=== PATIENT | male | born 1975 | race Caucasian/White ===

== ENCOUNTER → 2017-04-01 | Outpatient (CLI) | payer OTHER ==
[2017-04-01 14:14] LABS: BASO % 0.3 % (0.0-1.0); EOS # 0.1 10^3/uL (0.0-0.50); EOS % 1.6 % (0.0-3.0); IMMATURE GRANULOCYTE % 0.2 % (0-0); LYMPH # 2.1 10^3/uL (1.5-4.5); LYMPH % 34.6 % (24.0-44.0); MEAN CORPUSCULAR HEMOGLOBIN 32.1 pg (27.0-33.0); MEAN CORPUSCULAR HGB CONC 34.6 g/dl (32.0-36.5); MEAN CORPUSCULAR VOLUME 92.9 fl (80.0-96.0); MONO # 0.7 10^3/uL (0.0-0.8); MONO % 11.3 % (0.0-5.0); NEUTROPHILS # 3.2 10^3/uL (1.8-7.7); PLATELET COUNT, AUTOMATED 216 10^3/uL (150-450); RED CELL DISTRIBUTION WIDTH 12.5 % (11.5-14.5); WHITE BLOOD COUNT 6.1 10^3/uL (4.0-10.0)
== END ==
LOC: M LABNEURO 08:21
PROVIDERS: ATTEND Physician Assistant Medical
DX: Z51.81 Encounter for therapeutic drug level monitoring (principal); R56.9 Unspecified convulsions

== ENCOUNTER → 2019-09-09 | Outpatient (CLI) | payer OTHER ==
--- NOTE | 2019-09-10 00:06 | ECWPNPC ---
PATIENT NAME: SOFIA GUO : 1975 GENDER: MALE VISIT DATE: 09/09/2019 DISCHARGE DATE: 09/09/19 1216 VISIT LOCKED DATE TIME: PHYSICIAN: SHRUTHI OPST RESOURCE: SHRUTHI POST REASON FOR APPOINTMENT 1. BACK/NECK HISTORY OF PRESENT ILLNESS PAIN SCREENIN-YEAR-OLD GENTLEMAN REFERRED BY [facility] FOR PERSISTENT LOW BACK PAIN. LONG HISTORY OF LOW BACK PAIN. OVER THE PAST YEAR PAIN HAS GOTTEN WORSE. DENIES PRECIPITATING EVENT. 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 CHIEF AREA OF PAIN IS LEFT LUMBAR PARASPINAL REGION. RATING PAIN LEVEL A 4-10 OVER 10 VAS. DESCRIBES PAIN CONSTANT AND BURNING IN LEFT LOW BACK. REVIEWED MRI OF THE LS-SPINE, WHICH IS NOT SHOWING ANY SPECIFIC PATHOLOGY. PAIN IS AGGRAVATED IN THE LEFT LOW BACK WITH LIFTING AND PROLONGED SITTING. DENIES CHANGES IN BOWEL OR BLADDER FUNCTION. NO RECENT TREATMENT FOR LOW BACK PAIN. PATIENT HAS A COMPLAINT OF ACUTE OR CHRONIC PAIN :YES FALL RISK SCREENING: SCREENING :NO FALLS REPORTED IN THE LAST YEAR CURRENT MEDICATIONS TAKING DIVALPROEX SODIUM 500 MG TABLET DELAYED RELEASE 2 TABLETS ORALLY TWICE A DAY TAKING LOSARTAN POTASSIUM 50 MG TABLET 1 TABLET ORALLY ONCE A DAY TAKING PANTOPRAZOLE SODIUM 40 MG TABLET DELAYED RELEASE 1 TABLET ORALLY ONCE A DAY TAKING TYLENOL 325 MG TABLET 1 TABLET NEEDED ORALLY EVERY 4 HRS TAKING MOTRIN IB 200 MG CAPSULE 1 CAPSULE WITH FOOD OR MILK NEEDED ORALLY THREE TIMES A DAY MEDICATION LIST REVIEWED AND RECONCILED WITH THE PATIENT PAST MEDICAL HISTORY SEIZURE DISORDER CERVICALGIA RADICULOPATHY LOW BACK PAIN HYPERTENSION GASTRIC REFLUX HODGKIN'S LYMPHOMA AT AGE 20'LAZARO ALLERGIES PENICILLIN (FOR ALLERGIES USE ONLY) SURGICAL HISTORY BONE MARROW TRANSPLANT AT AGE 20 1998 LYMPH NODE REMOVED FROM NECK, ARMPIT 1998 CYST REMOVED FROM BACK 2014 FAMILY HISTORY FATHER: , DIAGNOSED WITH UNSPECIFIED HEART DISEASE MOTHER: ALIVE, HYPERTENSION 2 BROTHER(S) , 2 SISTER(S) - HEALTHY. SOCIAL HISTORY GENERAL: TOBACCO USE ARE YOU A:CURRENT SMOKER ARE YOU INTERESTED IN QUITTING?THINKING ABOUT QUITTING PREVIOUS QUIT ATTEMPTS?YES, WITHIN THE LAST 6 MONTHS. COUNSELED THE PATIENT ON SMOKING CESSATION, EDUCATION [id number]/13/2020 HOW MANY CIGARETTES A DAY DO YOU SMOKE?11-20 HOW SOON AFTER YOU WAKE UP DO YOU SMOKE YOUR FIRST CIGARETTE?WITHIN 5 MIN HOW OFTEN DO YOU SMOKE CIGARETTES?EVERY DAY PATIENT COUNSELED ON THE DANGERS OF TOBACCO USE AND URGED TO QUIT:09/09/2019 LATEX QUESTIONNAIRE LATEX ALLERGY : HAVE YOU EVER DEVELOPED ANY TYPE OF REACTION AFTER HANDLING LATEX PRODUCTS SUCH RUBBER GLOVES, CONDOMS, DIAPHRAGMS, BALLOONS, SOCKS, OR UNDERWEAR?NO LATEX ALLERGY : HAVE YOU EVER DEVELOPED ANY TYPE OF REACTION DURING OR AFTER DENTAL APPOINTMENT, VAGINAL/RECTAL EXAMINATION, SURGICAL PROCEDURE, OR ANY OTHER EXPOSURE?NO LATEX RISK : HAVE YOU EVER HAD ANY DIFFICULTY BREATHING OR HIVES AFTER EATING OR HANDLING ANY FRUITS, OR VEGETABLES; SUCH KIWI, BANANAS, STONE FRUITS, OR CHESTNUTSNO LATEX RISK : DO YOU HAVE A PREVIOUS PERSONAL HISTORY OF MORE THAN NINE SURGERIES, SPINA BIFIDA, OR REPEATED CATHERIZATIONS? NO LATEX RISK : ARE YOU FREQUENTLY EXPOSED TO LATEX PRODUCTS IN YOUR OCCUPATION?NO DATE ASKED : 09/09/2019 ALCOHOL SCREENING DID YOU HAVE A DRINK CONTAINING ALCOHOL IN THE PAST YEAR?YES HOW OFTEN DID YOU HAVE A DRINK CONTAINING ALCOHOL IN THE PAST YEAR?TWO TO THREE TIMES PER WEEK (3 POINTS) HOW MANY DRINKS DID YOU HAVE ON A TYPICAL DAY WHEN YOU WERE DRINKING IN THE PAST YEAR?1 OR 2 (0 POINTS) HOW OFTEN DID YOU HAVE SIX OR MORE DRINKS ON ONE OCCASION IN THE PAST YEAR?LESS THAN MONTHLY (1 POINT) POINTS4 INTERPRETATIONPOSITIVE RECREATIONAL DRUG USE DRUG USE?NO CAFFEINE CAFFEINE USE?YES ONE SIX PACK OF [place] DEW/DAY LANGUAGE LANGUAGES SPOKEN:YI LEARNING BARRIERS / SPECIAL NEEDS BARRIERS TO LEARNING?NO HEARING IMPAIRED?YES PT REPORTS SOME HEARING LOSS BILATERAL RIGHT> LEFT, NO HEARING AIDES VISION IMPAIRED?YES :CORRECTIVE LENSES COGNITIVELY IMPAIRED?NO READINESS TO LEARN?YES LEARNING PREFERENCES?NO LEARNING CAPABILITIES PRESENT?YES EMOTIONAL BARRIERS?NO SPECIAL DEVICES?NO NECK BAND OPERATOR NEEDED?NO OCCUPATION: AT [employer]. NEW PATIENT PAIN DIARY TODAY'S VISIT 09/09/2019 PATIENT DESCRIBES PAIN :BURNING, HAVE IT ALL THE TIME, IT COMES AND GOES, SHARP, THROBBING, SHOOTING FROM 0-10, WHAT LEVEL IS YOUR PAIN TODAY?4 PT REPORTS HE ALWAYS HAS PAIN AND STIFFNESS, LOWEST IS ABOUT A 4, GOES UP TO A 10 AT TIMES. PT DESCRIBES PAIN THROBBING, BURNING, AND IF HE MOVES JUST RIGHT, IT IS EXTREMELY SHARP AND SHOOTING. PRECIPITATING FACTORS ACTIVITY, MOVEMENT, PROLONGED DRIVING, PROLONGED STANDING ALLEVIATING FACTORS LAYING DOWN HELPS SOME. IMPACT ON FUNCTION PT REPORTS THAT WHEN HIS PAIN IS BAD, IT IS A STRUGGLE TO GET THROUGH THE DAY. PAIN CLINIC PFS, CLERGY, PUBLIC HEALTH REFERRALS HAS THE PATIENT BEEN EDUCATED REGARDING HIS/HER PLAN OF CARE?YES HAS THE PATIENT BEEN EDUCATED REGARDING PAIN, THE RISK FOR PAIN, THE IMPORTANCE OF EFFECTIVE PAIN MANAGEMENT, AND THE PAIN ASSESSMENT PROCESS?YES ADVANCE DIRECTIVE ADVANCE DIRECTIVE DISCUSSED WITH PATIENT:YES PT HAS NO ADVANCED DIRECTIVES, DECLINES INFORMATION OR ASSISTANCE AT THIS TIME. HOSPITALIZATION/MAJOR DIAGNOSTIC PROCEDURE SURGERIES, CANCER TREATMENT REVIEW OF SYSTEMS REVIEWED BY: PROVIDER: SHRUTHI QUEEN . CONSTITUTIONAL: ANY CHANGE IN YOUR MEDICAL CONDITION? NO . CHILLS NO . FEVER NO . INFECTION: DO YOU HAVE NEW INFECTIONS? NO . DO YOU HAVE HISTORY OF MRSA? NO . MUSCULOSKELETAL: ANY NEW PATTERNS OF PAIN OR NUMBNESS? NO . SYSTEMIC LUPUS NO . GASTROENTEROLOGY: ANY NEW CHANGE IN BOWEL CONTROL? NO . BARRETTS ESOPHAGUS NO . CIRRHOSIS NO . HEPATITIS NO . LIVER FAILURE NO . ACID REFLUX YES . UNEXPLAINED WEIGHT LOSS NO . GENITOURINARY: ANY NEW CHANGE IN BLADDER CONTROL? NO . IS THERE A CHANCE YOU COULD BE ? NO . HEMATOLOGY/LYMPH: DO YOU TAKE ANY BLOOD THINNERS? (FOR EXAMPLE- COUMADIN, PLAVIX, AGGRENOX, PLATEL, PRADAXA, OR XARELTO) NO . WHEN WAS YOUR LAST DOSE? DATE: TIME: . LOW PLATELET COUNT NO . SICKLE CELL DISEASE NO . VON WILLIEBRANDS NO . FACTOR V LEIDEN NO . THALLASEMIA NO . ANEMIA NO . EASY BRUISING NO . NEUROLOGY: HAVE YOU FALLEN IN THE PAST 12 MONTHS? NO . ANY NEW EXTREMITY NUMBNESS OR WEAKNESS? NO . HEAD INJURY NO . DEMENTIA NO . CEREBRAL PALSY NO . MULTIPLE SCLEROSIS NO . DIZZINESS NO . HEADACHE NO . STROKES NO . VERTIGO NO . CARDIOLOGY: DO YOU HAVE A PACEMAKER OR DEFIBRILLATOR? NO . ANGINA NO . HEART ATTACK NO . HEART SURGERY NO . CONGESTIVE HEART FAILURE/FLUID OVERLOAD NO . CHEST PAIN NO . HIGH BLOOD PRESSURE ON MEDICATION(S) . IRREGULAR HEART BEAT NO . RESPIRATORY: HAVE YOU BEEN SICK IN THE PAST WEEK? NO . FEVER NO . FLU LIKE SYMPTOMS? NO . CPAP NO . BYPAP NO . ASTHMA NO . EMPHYSEMA NO . CHRONIC LUNG DISEASES NO . SHORTNESS OF BREATH ON EXERTION NO . COUGH NO . SNORING NO . INTEGUMENTARY: DO YOU HAVE ANY RASHES OR OPEN SORES? NO . ALLERGIC/IMMUNO: ARE YOU ALLERGIC TO IV DYE? NO . ANY NEW ALLERGIES? NO . PSYCHIATRIC: DO YOU HAVE THOUGHTS OF HURTING YOURSELF OR SOMEONE ELSE? NO . ARE YOU ABUSED, NEGLECTED, OR IN AN UNSAFE ENVIRONMENT? NO . ENDOCRINOLOGY: ARE YOU DIABETIC? NO . THYROID DISORDER NO . OTHER: DO YOU NEED ANY PRESCRIPTIONS? NO . IF YES, PLEASE LIST: ____ . ANY NEW PROBLEMS WITH YOUR MEDICATIONS? NO . WHEN DID YOU LAST EAT? ____ . WHEN DID YOU LAST DRINK? ____ . WHAT DID YOU LAST DRINK? ____ . NAME OF PERSON DRIVING YOU HOME? ____ . DO YOU HAVE ANY OTHER QUESTIONS OR CONCERNS NO . VITAL SIGNS WT 255.2 LBS, HT 59 IN, BMI 51.54 INDEX, BP 149/82 MM HG, HR 109 /MIN, RR 18 /MIN, TEMP 97.1 F, OXYGEN SAT % 97%, NA INITIALS AW 1104. EXAMINATION GENERAL EXAMINATION: GENERAL AWAKE,ALERT ,PLEAASANT . PSYCH AFFECT NORMAL . NECK:NO LYMPHADENOPATHY, SUPPLE. LUNGS: LUNG BAILEY ARE CLEAR TO AUSCULTATION BILATERALLY. GOOD MOVEMENT OF AIR . HEART: S1, S2 IN A REGULAR RATE AND RHYTHM. NO SIGNIFICANT MURMURS, RUBS OR GALLOPS NOTED . MUSCULOSKELETAL: MUSCLE STRENGTH TESTING 4/5 BILATERAL LOWER EXTREMITIES. LUMBAR: TRIGGER POINTS:, ELICITED WITH PALPATION OVER LEFT LUMBAR PARAVERTEBRAL MUSCLES. INCREASED PAIN IN THIS REGION WITH RANGE OF JOINT MOTION OF THE SPINE. DIAGNOSTIC TESTS REVIEWED MRI L/S SPINE 02/2019. ON INSPECTION IT APPEARS THAT HE HAS SOME DEGREE OF SCOLIOSIS. RIGHT SCAPULA IS PROMINENT. ASSESSMENTS MYALGIA, OTHER SITE - M79.18 (PRIMARY) TREATMENT MYALGIA, OTHER SITE NOTES: TRIGGER POINT INJECTION, LEFT UPPER LUMBAR PARASPINAL PT 2 TIMES A WEEK X6 WEEKS FOR MYOFASCIAL RELEASE, LEFT LUMBAR PARASPINAL. PROCEDURE CODES FA211 ESTABILISHED PATIENT [facility] F[facility] CHARGE DISPOSITION & COMMUNICATION FOLLOW UP POST (REASON: TRIGGER POINT INJECTION, LEFT UPPER LUMBAR PARASPINAL) ELECTRONICALLY SIGNED BY BERNICE GANDARA ON 09/09/2019 AT 12:25 PM EDT DISCLAIMER : THIS IS A VISIT SUMMARY EXTRACTED FROM THE [employer] CHART. IT IS NOT A COPY OF THE [employer] PROGRESS NOTE. JITENDRA
== END ==
LOC: M PAIN 11:15
PROVIDERS: ATTEND Nurse Practitioner Family
DX: M79.18 Myalgia, other site (principal); G40.909 Epilepsy, unspecified, not intractable, without status epilepticus; I10 Essential (primary) hypertension; K21.9 Gastro-esophageal reflux disease without esophagitis; F17.210 Nicotine dependence, cigarettes, uncomplicated; Z88.0 Allergy status to penicillin; E66.01 Morbid (severe) obesity due to excess calories; Z68.43 Body mass index [BMI] 50.0-59.9, adult; Z79.899 Other long term (current) drug therapy

== ENCOUNTER → 2019-09-22 | Outpatient (CLI) | payer OTHER | LOC: M LABSMTC 11:44 | PROVIDERS: ATTEND Anesthesiology | DX: Z03.818 Encounter for observation for suspected exposure to other biological agents ruled out (principal); Z11.59 Encounter for screening for other viral diseases | CPT/HCPCS: C9803; U0003 ==

== ENCOUNTER → 2019-09-25 | Outpatient (CLI) | payer OTHER ==
[~2019-09-25] MED LIST: BUPIVACAINE HCL 0.25% 10ML VIAL As Ordered ONE; BUPIVACAINE HCL 0.25% 30ML VIAL As Ordered ONE
--- NOTE | 2019-09-29 01:44 | ECWPNPC ---
PATIENT NAME: SOFIA GUO : 1975 GENDER: MALE VISIT DATE: 09/25/2019 DISCHARGE DATE: 09/25/19 1412 VISIT LOCKED DATE TIME: PHYSICIAN: DERRICK GRADY MD RESOURCE: DERRICK GRADY MD REASON FOR APPOINTMENT 1. TRIGGER POINT INJECTION LEFT UPPER LUMBAR PARASPINAL. HISTORY OF PRESENT ILLNESS GENERAL: -. FALL RISK SCREENING: SCREENING :NO FALLS REPORTED IN THE LAST YEAR PAIN SCREENING: PATIENT HAS A COMPLAINT OF ACUTE OR CHRONIC PAIN :YES LOCATION OF PAIN:MID BACK, LOW BACK INTENSITY OF PAIN (SCALE OF 1 TO 10):3 AVERAGE 3-8 SOMETIMES 10 WHAT DOES YOUR PAIN FEEL LIKE:ACHING, BURNING, CONTINOUS, SHARP, STABBING, TENDER, THROBBING, SORE, SHOOTING, OTHER "BULGING" THE PAIN IS ALWAYS THERE BUT VARIES IN INTENSITY DURATION:CONTINOUS PAIN IS INCREASED BY:ACTIVITIES LIFTING, STANDING, SITTING, ACTIVITY IN GENERAL PAIN IS DECREASED BY: REST, LYING DOWN, SOMETIMES NOTHING NURSING NOTE: -. PAIN CENTER INTAKE QUESTIONS: DO YOU HAVE A HISTORY OF MRSA? :NO DO YOU TAKE A BLOOD THINNERS? :NO DO YOU HAVE ANY BLEEDING DISORDERS? :NO ANY NEW NUMBNESS OR WEAKNESS IN YOUR LEGS OR ARMS? :NO ANY PACEMAKER,DEFIBRILLATOR, OR DORSAL COLUMN STIMULATOR? :NO DO YOU HAVE ANY RASHES OR OPEN SORES? :YES RED AREAS ON HANDS AND FINGERS WITH PEELING SKIN--STARTED APPROX. [address] GRADY AWARE AND ADVISED PT. TO F/U WITH PCP. ARE YOU ALLERGIC TO IV DYE? :NO ARE YOU DIABETIC? :NO ANY NEW PROBLEMS WITH YOUR MEDICATIONS? :NO HAVE YOU RECEIVED A VACCINE IN THE PAST 30 DAYS? :NO DO YOU PLAN TO RECEIVE A VACCINE IN THE NEXT 21 DAYS? :NO ANY HISTORY OF SEIZURES? :YES LAST SEIZURE OVER 12 YRS AGO ANY HISTORY OF CARDIAC ISSUES OR EVENTS? :NO DO YOU HAVE SLEEP APNEA? :NO ANY RECENT HEAD INJURY? :NO DO YOU HAVE ANY NEW INFECTIONS? :NO WHEN DID YOU LAST EAT? : 09/23 2199 WHEN DID YOU LAST DRINK? : 09/24 929 WHAT DID YOU LAST DRINK? : WATER NAME OF PERSON DRIVING YOU HOME? : ELANA DO YOU HAVE ANY OTHER QUESTIONS OR CONCERNS? : IS THIS GOING TO LIMIT ME IN WHAT I CAN DO? 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 CURRENT MEDICATIONS TAKING DIVALPROEX SODIUM 500 MG TABLET DELAYED RELEASE 2 TABLETS ORALLY TWICE A DAY, NOTES: 09/24 599 TAKING LOSARTAN POTASSIUM 50 MG TABLET 1 TABLET ORALLY ONCE A DAY, NOTES: 09/24 599 TAKING PANTOPRAZOLE SODIUM 40 MG TABLET DELAYED RELEASE 1 TABLET ORALLY ONCE A DAY, NOTES: 09/24 599 TAKING TYLENOL 325 MG TABLET 1 TABLET NEEDED ORALLY EVERY 4 HRS, NOTES: 2-3 WEEKS AGO TAKING MOTRIN IB 200 MG CAPSULE 1 CAPSULE WITH FOOD OR MILK NEEDED ORALLY THREE TIMES A DAY, NOTES: 2-3 WEEKS AGO MEDICATION LIST REVIEWED AND RECONCILED WITH THE PATIENT PAST MEDICAL HISTORY SEIZURE DISORDER CERVICALGIA RADICULOPATHY LOW BACK PAIN HYPERTENSION GASTRIC REFLUX HODGKIN'S 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 SOCIAL HISTORY GENERAL: TOBACCO USE ARE YOU A:CURRENT SMOKER ARE YOU INTERESTED IN QUITTING?THINKING ABOUT QUITTING PREVIOUS QUIT ATTEMPTS?YES, WITHIN THE LAST 6 MONTHS. COUNSELED THE PATIENT ON SMOKING CESSATION, EDUCATION BOABCISO12/13/2020 HOW MANY CIGARETTES A DAY DO YOU SMOKE?11-20 HOW SOON AFTER YOU WAKE UP DO YOU SMOKE YOUR FIRST CIGARETTE?WITHIN 5 MIN HOW OFTEN DO YOU SMOKE CIGARETTES?EVERY DAY PATIENT COUNSELED ON THE DANGERS OF TOBACCO USE AND URGED TO QUIT:09/25/2019 LATEX QUESTIONNAIRE LATEX ALLERGY : HAVE YOU EVER DEVELOPED ANY TYPE OF REACTION AFTER HANDLING LATEX PRODUCTS SUCH RUBBER GLOVES, CONDOMS, DIAPHRAGMS, BALLOONS, SOCKS, OR UNDERWEAR?NO LATEX ALLERGY : HAVE YOU EVER DEVELOPED ANY TYPE OF REACTION DURING OR AFTER DENTAL APPOINTMENT, VAGINAL/RECTAL EXAMINATION, SURGICAL PROCEDURE, OR ANY OTHER EXPOSURE?NO LATEX RISK : HAVE YOU EVER HAD ANY DIFFICULTY BREATHING OR HIVES AFTER EATING OR HANDLING ANY FRUITS, OR VEGETABLES; SUCH KIWI, BANANAS, STONE FRUITS, OR CHESTNUTSNO LATEX RISK : DO YOU HAVE A PREVIOUS PERSONAL HISTORY OF MORE THAN NINE SURGERIES, SPINA BIFIDA, OR REPEATED CATHERIZATIONS? NO LATEX RISK : ARE YOU FREQUENTLY EXPOSED TO LATEX PRODUCTS IN YOUR OCCUPATION?YES DATE ASKED : 09/25/2019 ALCOHOL SCREENING DID YOU HAVE A DRINK CONTAINING ALCOHOL IN THE PAST YEAR?YES HOW OFTEN DID YOU HAVE SIX OR MORE DRINKS ON ONE OCCASION IN THE PAST YEAR?LESS THAN MONTHLY (1 POINT) HOW MANY DRINKS DID YOU HAVE ON A TYPICAL DAY WHEN YOU WERE DRINKING IN THE PAST YEAR?1 OR 2 (0 POINTS) HOW OFTEN DID YOU HAVE A DRINK CONTAINING ALCOHOL IN THE PAST YEAR?TWO TO THREE TIMES PER WEEK (3 POINTS) POINTS4 INTERPRETATIONPOSITIVE RECREATIONAL DRUG USE DRUG USE?NO CAFFEINE CAFFEINE USE?YES ONE SIX PACK OF [place] DEW/DAY LANGUAGE LANGUAGES SPOKEN:MAORI LEARNING BARRIERS / SPECIAL NEEDS BARRIERS TO LEARNING?NO HEARING IMPAIRED?YES PT REPORTS SOME HEARING LOSS BILATERAL RIGHT> LEFT, NO HEARING AIDES VISION IMPAIRED?YES :CORRECTIVE LENSES COGNITIVELY IMPAIRED?NO READINESS TO LEARN?YES LEARNING PREFERENCES?NO LEARNING CAPABILITIES PRESENT?YES EMOTIONAL BARRIERS?NO SPECIAL DEVICES?NO DELI WORKER NEEDED?NO DOMESTIC VIOLENCE DO YOU FEEL SAFE IN YOUR ENVIRONMENT?YES OCCUPATION: AT [employer]. PAIN CLINIC PFS, CLERGY, PUBLIC HEALTH REFERRALS HAS THE PATIENT BEEN EDUCATED REGARDING HIS/HER PLAN OF CARE?YES HAS THE PATIENT BEEN EDUCATED REGARDING PAIN, THE RISK FOR PAIN, THE IMPORTANCE OF EFFECTIVE PAIN MANAGEMENT, AND THE PAIN ASSESSMENT PROCESS?YES ADVANCE DIRECTIVE ADVANCE DIRECTIVE DISCUSSED WITH PATIENT:YES 09/25/2019 PT HAS NO ADVANCED DIRECTIVES, DECLINES INFORMATION OR ASSISTANCE AT THIS TIME. AD HOSPITALIZATION/MAJOR DIAGNOSTIC PROCEDURE CANCER TREATMENT VITAL SIGNS WT 253.4 LBS, HT 59 IN, BMI 51.18 INDEX, BP 148/80 MM HG, HR 107 /MIN, RR 18 /MIN, TEMP 99.1 F, OXYGEN SAT % 95%, SAFE IN ENV? (Y/N) Y, NA INITIALS TL 1150, REVIEWED BY: AD. EXAMINATION GENERAL EXAMINATION: THE PATIENT IS ALERT, ORIENTED TIMES THREE AND COOPERATIVE. HEART SHOWS REGULAR RHYTHM, NO MURMURS AND NO GALLOPS. LUNGS ARE CLEAR TO AUSCULTATION. ASSESSMENTS MYALGIA, OTHER SITE - M79.18 (PRIMARY) PROCEDURES PN TRIGGER POINT INJECTION NO STEROIDS PRE PROCEDURE DIAGNOSIS 1. MYALGIA 2. PAIN AT LEFT LOWER BACK AREA POST PROCEDURE DIAGNOSIS 1. MYALGIA 2. PAIN AT LEFT LOWER BACK AREA PROCEDURE TRIGGER POINT INJECTION AT LEFT LOWER BACK AREA SURGEON DR. DERRICK GRADY REMOTE INPATIENT CODER NONE ANESTHESIA LOCAL PRE PROCEDURE NOTE 43-YEAR-OLD PATIENT WITH HISTORY OF CHRONIC PAIN AT LEFT LOWER BACK AREA. I EVALUATED THE PATIENT AND REVIEWED THE CHART. THERE IS EVIDENCE OF BANDS OF TISSUE WITH RESTRICTION OF MOVEMENT AND PRESENCE OF TRIGGER POINT AT THE LEFT LOWER BACK AREA. I WENT OVER THE RISKS, ALTERNATIVES, AND BENEFITS ASSOCIATED WITH THIS PROCEDURE. THE PATIENT WOULD LIKE TO PROCEED AND GAVE CONSENT TO PERFORM THE PROCEDURE. THE PATIENT DENIES UNEXPLAINABLE WEIGHT LOSS, FEVER, CHILLS, OR NEW CHANGES IN URINARY OR BOWEL CONTROL. THE PATIENT IS COVID-19 NEGATIVE DESCRIPTION OF PROCEDURE THE PATIENT WAS BROUGHT TO THE PROCEDURE ROOM AND PLACED IN THE SITTING POSITION. THE AREA WAS CLEANED WITH ALCOHOL. THE PROCEDURE WAS DONE USING ASEPTIC STERILE TECHNIQUES. I CHECKED LATERALITY AND THE LEVEL WHERE THE PROCEDURE WAS GOING TO BE PERFORMED WITH THE PATIENT AND THE SUPPORTING STAFF AT THE MOMENT OF THE TIME OUT IN THE PROCEDURE ROOM. USING A 25-GAUGE NEEDLE, TRIGGER POINTS WERE INJECTED INTO THE LEFT LOWER BACK AREA WITH A TOTAL OF 40 ML OF BUPIVACAINE 0.25%. AGREED WITH THE PATIENT THE PROCEDURE WAS DONE WITHOUT STEROIDS. THERE WAS NO EVIDENCE OF BLOOD, PARESTHESIA OR CEREBROSPINAL FLUID DURING THE PROCEDURE. THE PATIENT WAS SENT TO THE RECOVERY ROOM. THE PATIENT WAS MOVING THE EXTREMITIES AND DOING WELL. THERE WAS NO COMPLICATION DURING THE PROCEDURE POST PROCEDURE NOTE THE PROCEDURE DONE WAS DISCUSSED WITH THE PATIENT. THE PATIENT WILL BE SEEN IN A FOLLOW UP IN THE NEXT FEW WEEKS. I AM LOOKING FOR LONG LASTING PAIN RELIEF FOR THE PATIENT WITH THIS INTERVENTION. INSTRUCTIONS WERE GIVEN, QUESTIONS WERE ANSWERED, AND THE PATIENT EXPRESSED UNDERSTANDING AND AGREES WITH THE PLAN. I, ANDRIY REYES, DOCUMENTED THE ABOVE INFORMATION ACTING A SCRIBE FOR DR. GRADY. I HAVE REVIEWED THE ABOVE DOCUMENT, WRITTEN BY ANDRIY REYES, [employer] REPRESENTATIVE, AND I VERIFY THAT IT IS ACCURATE PROCEDURE CODES 85031 INJ TRIGGER POINT 04/30 [facility] DISPOSITION & COMMUNICATION FOLLOW UP F/UP WITH INSURANCE ADVISOR (REASON: POST TPI LEFT UPPER LUMBAR) ELECTRONICALLY SIGNED BY DERRICK GRADY MD, MD ON 09/28/2019 AT 10:16 AM EDT DISCLAIMER : THIS IS A VISIT SUMMARY EXTRACTED FROM THE [employer] CHART. IT IS NOT A COPY OF THE [employer] PROGRESS NOTE. JITENDRA
== END ==
LOC: M PAIN 11:45
PROVIDERS: ATTEND Anesthesiology
DX: M79.18 Myalgia, other site (principal)

== ENCOUNTER → 2019-10-09 | Outpatient (CLI) | payer OTHER ==
--- NOTE | 2019-10-13 01:34 | ECWPNPC ---
PATIENT NAME: SOFIA GUO : 1975 GENDER: MALE VISIT DATE: 10/09/2019 DISCHARGE DATE: 10/09/19954 VISIT LOCKED DATE TIME: PHYSICIAN: SHRUTHI POST RESOURCE: SHRUTHI POST REASON FOR APPOINTMENT 1. POST TPI [phone] PAT DONE HISTORY OF PRESENT ILLNESS GENERAL: PATIENT IS AGREEABLE TO TELEMED VISIT VIA ZOOM. HAD TRIGGER POINT INJECTIONS, LEFT LOW BACK ON 09/25/2019. REPORTS NO SIGNIFICANT IMPROVEMENT FOR MORE THAN A DAY POSTPROCEDURE. STATES HE WAS OFF WORK THE FOLLOWING DAY WAS DOING OKAY BUT WHEN HE RETURNED TO WORK 2 DAYS LATER PAIN RETURNED TO BASELINE. WILL NEED TO SEE HIM IN THE CLINIC FOR PHYSICAL APPOINTMENT TO ESTABLISH A TREATMENT PLAN. -. FALL RISK SCREENING: SCREENING :NO FALLS REPORTED IN THE LAST YEAR PAIN SCREENING: PATIENT HAS A COMPLAINT OF ACUTE OR CHRONIC PAIN :YES 10/08/19 INTENSITY OF PAIN (SCALE OF 1 TO 10):2 WHAT DOES YOUR PAIN FEEL LIKE:ACHING PAIN IS INCREASED BY: ACTIVITY PAIN IS DECREASED BY: REST NURSING NOTE: -. PAIN CENTER INTAKE QUESTIONS: DO YOU HAVE A HISTORY OF MRSA? :NO DO YOU TAKE A BLOOD THINNERS? :NO DO YOU HAVE ANY BLEEDING DISORDERS? :NO ANY NEW NUMBNESS OR WEAKNESS IN YOUR LEGS OR ARMS? :NO ANY PACEMAKER,DEFIBRILLATOR, OR DORSAL COLUMN STIMULATOR? :NO DO YOU HAVE ANY RASHES OR OPEN SORES? :NO ARE YOU ALLERGIC TO IV DYE? :NO ARE YOU DIABETIC? :NO ANY NEW PROBLEMS WITH YOUR MEDICATIONS? :NO HAVE YOU RECEIVED A VACCINE IN THE PAST 30 DAYS? :NO DO YOU PLAN TO RECEIVE A VACCINE IN THE NEXT 21 DAYS? :NO DO YOU NEED ANY PRESCRIPTION? :NO DO YOU TAKE ANY IMMUNOSUPPRESSIVE MEDICATIONS? :NO IS THERE A CHANCE YOU COULD BE ? :NO ARE YOU BREAST FEEDING? :NO CURRENT MEDICATIONS TAKING DIVALPROEX SODIUM 500 MG TABLET DELAYED RELEASE 2 TABLETS ORALLY TWICE A DAY TAKING LOSARTAN POTASSIUM 50 MG TABLET 1 TABLET ORALLY ONCE A DAY TAKING PANTOPRAZOLE SODIUM 40 MG TABLET DELAYED RELEASE 1 TABLET ORALLY ONCE A DAY TAKING TYLENOL 325 MG TABLET 1 TABLET NEEDED ORALLY EVERY 4 HRS TAKING MOTRIN IB 200 MG CAPSULE 1 CAPSULE WITH FOOD OR MILK NEEDED ORALLY THREE TIMES A DAY PAST MEDICAL HISTORY SEIZURE DISORDER CERVICALGIA RADICULOPATHY LOW BACK PAIN HYPERTENSION GASTRIC REFLUX HODGKIN'S 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 SOCIAL HISTORY GENERAL: TOBACCO USE ARE YOU A:CURRENT SMOKER ARE YOU INTERESTED IN QUITTING?THINKING ABOUT QUITTING PREVIOUS QUIT ATTEMPTS?YES, WITHIN THE LAST 6 MONTHS. COUNSELED THE PATIENT ON SMOKING CESSATION, EDUCATION [id number]/11/2020 HOW MANY CIGARETTES A DAY DO YOU SMOKE?- HOW SOON AFTER YOU WAKE UP DO YOU SMOKE YOUR FIRST CIGARETTE?WITHIN 5 MIN HOW OFTEN DO YOU SMOKE CIGARETTES?EVERY DAY PATIENT COUNSELED ON THE DANGERS OF TOBACCO USE AND URGED TO QUIT:09/25/2019 LATEX QUESTIONNAIRE LATEX ALLERGY : HAVE YOU EVER DEVELOPED ANY TYPE OF REACTION AFTER HANDLING LATEX PRODUCTS SUCH RUBBER GLOVES, CONDOMS, DIAPHRAGMS, BALLOONS, SOCKS, OR UNDERWEAR?NO LATEX ALLERGY : HAVE YOU EVER DEVELOPED ANY TYPE OF REACTION DURING OR AFTER DENTAL APPOINTMENT, VAGINAL/RECTAL EXAMINATION, SURGICAL PROCEDURE, OR ANY OTHER EXPOSURE?NO DATE ASKED : 09/25/2019 LATEX RISK : HAVE YOU EVER HAD ANY DIFFICULTY BREATHING OR HIVES AFTER EATING OR HANDLING ANY FRUITS, OR VEGETABLES; SUCH KIWI, BANANAS, STONE FRUITS, OR CHESTNUTSNO LATEX RISK : DO YOU HAVE A PREVIOUS PERSONAL HISTORY OF MORE THAN NINE SURGERIES, SPINA BIFIDA, OR REPEATED CATHERIZATIONS? NO LATEX RISK : ARE YOU FREQUENTLY EXPOSED TO LATEX PRODUCTS IN YOUR OCCUPATION?YES ALCOHOL SCREENING DID YOU HAVE A DRINK CONTAINING ALCOHOL IN THE PAST YEAR?YES HOW OFTEN DID YOU HAVE SIX OR MORE DRINKS ON ONE OCCASION IN THE PAST YEAR?LESS THAN MONTHLY (1 POINT) HOW MANY DRINKS DID YOU HAVE ON A TYPICAL DAY WHEN YOU WERE DRINKING IN THE PAST YEAR?1 OR 2 (0 POINTS) HOW OFTEN DID YOU HAVE A DRINK CONTAINING ALCOHOL IN THE PAST YEAR?TWO TO THREE TIMES PER WEEK (3 POINTS) POINTS4 INTERPRETATIONPOSITIVE RECREATIONAL DRUG USE DRUG USE?NO CAFFEINE CAFFEINE USE?YES ONE SIX PACK OF [place] DEW/DAY LANGUAGE LANGUAGES SPOKEN:KYRGYZ LEARNING BARRIERS / SPECIAL NEEDS BARRIERS TO LEARNING?NO HEARING IMPAIRED?YES PT REPORTS SOME HEARING LOSS BILATERAL RIGHT> LEFT, NO HEARING AIDES VISION IMPAIRED?YES COGNITIVELY IMPAIRED?NO :CORRECTIVE LENSES READINESS TO LEARN?YES LEARNING PREFERENCES?NO LEARNING CAPABILITIES PRESENT?YES EMOTIONAL BARRIERS?NO SPECIAL DEVICES?NO BISQUE GRADER NEEDED?NO DOMESTIC VIOLENCE DO YOU FEEL SAFE IN YOUR ENVIRONMENT?YES OCCUPATION: AT [employer]. PAIN CLINIC PFS, CLERGY, PUBLIC HEALTH REFERRALS HAS THE PATIENT BEEN EDUCATED REGARDING HIS/HER PLAN OF CARE?YES HAS THE PATIENT BEEN EDUCATED REGARDING PAIN, THE RISK FOR PAIN, THE IMPORTANCE OF EFFECTIVE PAIN MANAGEMENT, AND THE PAIN ASSESSMENT PROCESS?YES ADVANCE DIRECTIVE ADVANCE DIRECTIVE DISCUSSED WITH PATIENT:YES PT HAS NO ADVANCED DIRECTIVES, DECLINES INFORMATION OR ASSISTANCE AT THIS TIME. HOSPITALIZATION/MAJOR DIAGNOSTIC PROCEDURE CANCER TREATMENT REVIEW OF SYSTEMS CONSTITUTIONAL: ANY RECENT FEVER OR ILLNESS NO . CHILLS NO . GASTROENTEROLOGY: BOWEL INCONTINENCE NO . ANY NEW CHANGE IN BOWEL CONTROL? NO . ABDOMINAL PAIN NO . CONSTIPATION NO . GENITOURINARY: ANY NEW CHANGE IN BLADDER CONTROL? NO . IS THERE A CHANCE YOU COULD BE ? NO . URINARY INCONTINENCE NO . CARDIOLOGY: CHEST PRESSURE NO . CHEST PAIN NO . RESPIRATORY: COUGH NO . SHORTNESS OF BREATH NO . ASSESSMENTS MYALG[facility], OTHER SITE - M79.18 (PRIMARY) TREATMENT MYALGIA, OTHER SITE NOTES: CONTINUE CONSERVATIVE CARE FOR CHRONIC LOW BACK PAIN. FOLLOW-UP IN CLINIC IN 6 WEEKS TO REEVALUATE FOR INTERVENTIONAL THERAPY. TOTAL TIME SPENT DURING TELEMED VISIT WAS APPROXIMATELY 11 MINUTES. OTHERS CLINICAL NOTES: PRE SCREENING CALL DONE 10/08/19 EM. DISPOSITION & COMMUNICATION FOLLOW UP 6 WEEKS IN CLINIC VISIT EVALUATE FOR TREATMENT (REASON: LOW BACK PAIN) ELECTRONICALLY SIGNED BY BERNICE GANDARA ON 10/12/2019 AT 11:14 AM EDT DISCLAIMER : THIS IS A VISIT SUMMARY EXTRACTED FROM THE [employer] CHART. IT IS NOT A COPY OF THE [employer] PROGRESS NOTE. JITENDRA
== END ==
LOC: M PAIN 13:00
PROVIDERS: ATTEND Nurse Practitioner Family
DX: M79.18 Myalgia, other site (principal)

== ENCOUNTER → 2021-03-03 | Outpatient (CLI) | payer OTHER ==
--- NOTE | 2021-03-03 09:22 | REP ---
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 COMPARISON: None TECHNIQUE: Transabdominal FINDINGS: Multiple ultrasonographic images of the liver show the hepatic parenchymal echo texture to appear unremarkable. There are no focal masses. There is no intrahepatic ductal dilatation. The common bile duct measures approximately 3 mm in its greatest transverse dimension. Multiple ultrasonographic images of the gallbladder show no focal or diffuse gallbladder wall thickening. There are no echogenic foci within the gallbladder lumen, which casts acoustic shadows. There is no pericholecystic edema. Images of the pancreatic region show no gross abnormality. The imaged portion of the right kidney is unremarkable. IMPRESSION: Unremarkable right upper quadrant ultrasound. Accredited by the [employer] in General Ultrasound. <Electronically signed by Prosper Yeager > 03/03/21 0918
== END ==
LOC: M RAD 08:40
PROVIDERS: ATTEND Family Medicine
DX: R79.89 Other specified abnormal findings of blood chemistry (principal)

== ENCOUNTER 2023-05-03 15:52 | Emergency (ER) | payer OTHER ==
[2023-05-03 16:35] LABS: BASO % 0.3 % (0.0-1.0); EOS # 0.1 10^3/uL (0.0-0.5); EOS % 0.9 % (0.0-3.0); HEMOGLOBIN 16.8 g/dl (13.5-17.5); LYMPH # 2.4 10^3/uL (1.5-5.0); LYMPH % 26.6 % (24.0-44.0); MEAN CORPUSCULAR HEMOGLOBIN 32.2 pg (27.0-33.0); MONO # 0.8 10^3/uL (0.0-0.8); MONO % 9.2 % (2.0-8.0); NEUTROPHILS # 5.6 10^3/uL (1.5-8.5); NEUTROPHILS % 62.7 % (36.0-66.0); PLATELET COUNT, AUTOMATED 204 10^3/uL (150-450); RED BLOOD COUNT 5.22 10^6/uL (4.30-6.10)
[2023-05-03 16:53] LABS: PROTHROMBIN TIME 12.9 SECONDS (12.5-14.5)
[2023-05-03 17:04] LABS: LIPASE 48 U/L (12-53)
[2023-05-03 17:06] LABS: ALBUMIN 3.4 G/DL (3.2-5.2); ALKALINE PHOSPHATASE 67 U/L (46-116); ALT/SGPT 51 U/L (7.0-40); AST/SGOT 83 U/L (<34); BILIRUBIN,DIRECT 0.2 MG/DL (<0.4); BILIRUBIN,TOTAL 0.6 MG/DL (0.3-1.2); BLOOD UREA NITROGEN 14 MG/DL (9-23); CALCIUM LEVEL 9.3 MG/DL (8.5-10.1); CARBON DIOXIDE LEVEL 29 MMOL/L (20-31); CHLORIDE LEVEL 102 MMOL/L (98-107); CK-MB VALUE MASS 2.7 NG/ML (<3.6); GLOMERULAR FILTRATION RATE > 60.0 (>60); GLUCOSE, FASTING 133 MG/DL (60-100); POTASSIUM SERUM 3.6 MMOL/L (3.5-5.1); SODIUM LEVEL 137 MMOL/L (136-145); TOTAL PROTEIN 6.8 G/DL (5.7-8.2)
[2023-05-03 17:08] LABS: THYROID STIMULATING HORMONE 3.735 uIU/ML (0.55-4.78)
[2023-05-03 17:16] LABS: CPK CREATINE PHOSPHOKINASE 335 U/L (46-171)
[2023-05-03] MEDS ORDERED: HYDR-3490 (17:53)
[2023-05-03] MEDS ORDERED: ATOR40TA75 (17:53)
[2023-05-03] MEDS ORDERED: LOSA50TA28 (17:53)
[2023-05-03] MEDS ORDERED: METO1TAB87 PO (18:00)
[2023-05-03] MEDS ORDERED: ELIQ5TAB PO (18:00)
[2023-05-03 18:09] LABS: CK-MB VALUE MASS 3.3 NG/ML (<3.6)
[2023-05-03 18:13] LABS: MB/CK RELATIVE INDEX 1.04 (< OR =4)
[2023-05-03] MEDS ORDERED: APIXABAN 5 MG TAB (ELIQUIS) PO ONE (18:30)
[2023-05-03 20:30] VITALS: BP 121/74; O2SAT 94
[2023-05-03 20:33] LABS: CK-MB VALUE MASS 2.6 NG/ML (<3.6)
[2023-05-03 20:35] LABS: MB/CK RELATIVE INDEX 0.93 (< OR =4)
[2023-05-03 20:43] VITALS: TEMP 98
== END 2023-05-03 20:56 | disposition home or self-care (01) ==
LOC: EDBD 15:52 → M ED 15:52
DX: R07.9 Chest pain, unspecified (principal); I48.92 Unspecified atrial flutter; I10 Essential (primary) hypertension; I44.4 Left anterior fascicular block; I51.7 Cardiomegaly; I45.81 Long QT syndrome; Z88.0 Allergy status to penicillin; Z86.79 Personal history of other diseases of the circulatory system; Z79.01 Long term (current) use of anticoagulants; Z79.02 Long term (current) use of antithrombotics/antiplatelets; Z79.811 Long term (current) use of aromatase inhibitors; Z79.899 Other long term (current) drug therapy

== ENCOUNTER 2023-08-27 11:53 | Emergency (ER) | payer OTHER ==
[~2023-08-27] VITALS: Ht 175.3 cm; Wt 112.1 kg
[~2023-08-27 11:53] MED LIST changes: +ATOR40TA75; -BUPIVACAINE HCL 0.25% 10ML VIAL As Ordered ONE; -BUPIVACAINE HCL 0.25% 30ML VIAL As Ordered ONE; +ELIQ5TAB PO; +HYDR-3490; +LOSA50TA28; +METO1TAB87 PO
[2023-08-27 11:54] VITALS: TEMP 97.6
[2023-08-27] MEDS ORDERED: METO100T5 (12:06)
[2023-08-27] MEDS ORDERED: DIVA500T94 (12:06)
[2023-08-27] MEDS ORDERED: AMLO1TAB24 (12:06)
[2023-08-27] MEDS: NS 1,000 ML IV ONE (12:40)
[2023-08-27 12:41] LABS: BASO % 0.2 % (0.0-1.0); EOS # 0.1 10^3/uL (0.0-0.5); EOS % 0.7 % (0.0-3.0); HEMATOCRIT 44.1 % (42.0-52.0); HEMOGLOBIN 15.6 g/dl (13.5-17.5); LYMPH # 3.1 10^3/uL (1.5-5.0); LYMPH % 36.8 % (24.0-44.0); MEAN CORPUSCULAR HEMOGLOBIN 32.4 pg (27.0-33.0); MEAN CORPUSCULAR HGB CONC 35.4 g/dl (32.0-36.5); MEAN CORPUSCULAR VOLUME 91.7 fl (80.0-96.0); MONO # 0.8 10^3/uL (0.0-0.8); MONO % 9.3 % (2.0-8.0); NEUTROPHILS # 4.4 10^3/uL (1.5-8.5); NEUTROPHILS % 52.6 % (36.0-66.0); PLATELET COUNT, AUTOMATED 148 10^3/uL (150-450); RED BLOOD COUNT 4.81 10^6/uL (4.30-6.10); WHITE BLOOD COUNT 8.3 10^3/uL (4.0-10.0)
[2023-08-27] MEDS ORDERED: DIGOXIN INJ 0.5 MG/2 ML AMP IV ONE (13:00)
[2023-08-27 13:06] LABS: LIPASE 40 U/L (12-53)
[2023-08-27 13:09] LABS: ALBUMIN 3.2 G/DL (3.2-5.2); ALKALINE PHOSPHATASE 57 U/L (46-116); ALT/SGPT 26 U/L (7.0-40); AST/SGOT 23 U/L (<34); BILIRUBIN,DIRECT 0.2 MG/DL (<0.4); BILIRUBIN,TOTAL 0.6 MG/DL (0.3-1.2); BLOOD UREA NITROGEN 12 MG/DL (9-23); CARBON DIOXIDE LEVEL 24 MMOL/L (20-31); CHLORIDE LEVEL 104 MMOL/L (98-107); CK-MB VALUE MASS 4.1 NG/ML (<3.6); GLOMERULAR FILTRATION RATE > 60.0 (>60); GLUCOSE, FASTING 130 MG/DL (60-100); MAGNESIUM LEVEL 1.9 MG/DL (1.8-2.4); POTASSIUM SERUM 3.9 MMOL/L (3.5-5.1); SODIUM LEVEL 136 MMOL/L (136-145); TOTAL PROTEIN 6.5 G/DL (5.7-8.2)
[2023-08-27 13:10] LABS: THYROID STIMULATING HORMONE 3.628 uIU/ML (0.55-4.78)
[2023-08-27 13:11] LABS: FREE T4 0.96 NG/DL (0.89-1.76)
[2023-08-27 13:14] LABS: CPK CREATINE PHOSPHOKINASE 215 U/L (46-171)
[2023-08-27] MEDS ORDERED: ISOVUE-370 76% 100ML VIAL As Ordered ONE (13:29)
[2023-08-27 14:50] LABS: CK-MB VALUE MASS 3.2 NG/ML (<3.6); MB/CK RELATIVE INDEX 1.8 (< OR =4)
[2023-08-27 16:16] LABS: CK-MB VALUE MASS 3.3 NG/ML (<3.6)
[2023-08-27 16:30] VITALS: BP 114/59; O2SAT 93
[2023-08-27 16:35] LABS: MB/CK RELATIVE INDEX 1.89 (< OR =4)
[2023-08-27] MEDS: ASPIRIN 81MG CHEW TABLET PO ONE (16:46)
[2023-08-27] MEDS ORDERED: LEVAINH INH (16:53)
[2023-08-27] MEDS ORDERED: LEVO750T14 PO (16:53)
[2023-08-27] MEDS: LEVALBUTEROL 1.25MG 0.5ML CONCENTRATE NEB NEB ONE (17:17)
== END 2023-08-27 17:55 | disposition left against medical advice (07) ==
LOC: M ED 11:53
DX: I21.4 Non-ST elevation (NSTEMI) myocardial infarction (principal); I48.92 Unspecified atrial flutter; J18.9 Pneumonia, unspecified organism; Z53.9 Procedure and treatment not carried out, unspecified reason; I10 Essential (primary) hypertension; E78.5 Hyperlipidemia, unspecified; F17.200 Nicotine dependence, unspecified, uncomplicated
CPT/HCPCS: 71045; 71275; 80047; 80048; 80076; 82550; 82553; 83690; 83735; 83880; 84439; 84443; 84484; 85025; 93005; 93041; 94640; 94760; 96360; 96361; 99285; Q9967

== ENCOUNTER → 2024-01-21 | Outpatient (CLI) | payer OTHER ==
[~2024-01-21] MED LIST changes: +AMLO1TAB24; +DIVA500T94; +ISOVUE-370 76% 100ML VIAL ONE; +LEVAINH INH; +LEVO750T14 PO; +METO100T5
== END ==
LOC: M PLAIMG 13:40
PROVIDERS: ATTEND Family Medicine
DX: R59.0 Localized enlarged lymph nodes (principal); I25.10 Atherosclerotic heart disease of native coronary artery without angina pectoris; R91.8 Other nonspecific abnormal finding of lung field; J98.11 Atelectasis; J43.8 Other emphysema
CPT/HCPCS: 71260; Q9967

== ENCOUNTER → 2024-07-29 | Outpatient (CLI) | payer OTHER ==
[~2024-07-29] MED LIST changes: +LEVA15HF2 INH; -LEVAINH INH; -LEVO750T14 PO; +LEVO75TAB PO
== END ==
LOC: M PLAIMG 08:01
PROVIDERS: ATTEND Family Medicine
DX: D38.1 Neoplasm of uncertain behavior of trachea, bronchus and lung (principal); C81.70 Other Hodgkin lymphoma, unspecified site; E04.1 Nontoxic single thyroid nodule
CPT/HCPCS: 71260; Q9967

== ENCOUNTER → 2024-08-18 | Outpatient (CLI) | payer OTHER ==
[~2024-08-18] MED LIST changes: -ISOVUE-370 76% 100ML VIAL ONE
== END ==
LOC: M RAD 13:31
PROVIDERS: ATTEND Family Medicine
DX: E04.1 Nontoxic single thyroid nodule (principal)

== ENCOUNTER → 2024-08-18 | Outpatient (CLI) | payer OTHER | LOC: M PLARAD 10:06 | PROVIDERS: ATTEND Family Medicine | DX: E04.1 Nontoxic single thyroid nodule (principal) | CPT/HCPCS: 78815; A9552 ==

== ENCOUNTER → 2025-03-12 | Outpatient (REF) | payer OTHER ==
[~2025-03-12] MED LIST changes: +DIVA-41; -DIVA500T94
== END ==
LOC: M SFHCDERM 13:23
PROVIDERS: ATTEND Physician Assistant
DX: D49.2 Neoplasm of unspecified behavior of bone, soft tissue, and skin (principal)

== ENCOUNTER → 2025-04-06 | Outpatient (CLI) | payer OTHER | LOC: M RAD 15:53 | PROVIDERS: ATTEND Thoracic Surgery (Cardiothoracic Vascular Surgery) | DX: R91.1 Solitary pulmonary nodule (principal) ==